=== PATIENT | female | born 1970 | race Hispanic/Latino ===

== ENCOUNTER → 2025-04-04 | Outpatient (CLI) | payer OTHER ==
--- NOTE | 2025-04-04 23:45 | HMCIMG ---
STUDY: X-RAY OF THE CHEST, 2 VIEWS HISTORY: Evaluation of chronic cough. TECHNIQUE: PA and lateral views of the chest are submitted for interpretation. COMPARISON: None provided. FINDINGS: Pulmonary sarabia: Lungs are well expanded with clear aeration. No focal consolidation, infiltrates, or atelectasis are identified. No pleural effusion or pneumothorax is seen. Diaphragms and costophrenic angles are sharply defined. Cardiac silhouette: Cardiac silhouette is normal in size and contour. Mediastinum and eladio: Mediastinal and hilar contours are within normal limits. The trachea is midline. There is calcific aortic atherosclerosis along the aortic contour. Osseous structures: Visualized ribs, clavicles, and thoracic spine show no acute fracture or destructive osseous lesion. Miscellaneous: No subdiaphragmatic free air is identified. IMPRESSION: * No radiographic evidence of acute cardiopulmonary abnormality. * Calcific aortic atherosclerosis. No definite chest radiographic explanation for chronic cough; correlate clinically, with further evaluation as indicated by symptoms and risk factors. /Horton
== END | disposition home or self-care (01) ==
LOC: RAH 10:34
PROVIDERS: ATTEND Internal Medicine
DX: I70.0 Atherosclerosis of aorta (principal); R05.3 Chronic cough
CPT/HCPCS: 71046